=== PATIENT | male | born 2005 | race Caucasian/White ===

== ENCOUNTER 2025-03-01 07:10 | Outpatient (OUT) | payer BC, SELFPAY ==
--- OUTSIDE RECORDS SUMMARY | 2025-03-01 07:17 | XMS_ITS | Clinical Summary ---
Author Organization [facility] Address [address] [place] [address] Phone Care Team Providers Care Associate Sales Representative Name Role Phone Luis Ashley MD Primary Care Provider Ryland chavez Social History Tobacco Use Types Packs/Day Years Used Date Smoking Tobacco: Never Assessed Sex and Gender Information Value Date Recorded Sex Assigned at Not on file Legal Sex Male 3:41 PM EST Gender Identity Not on file Sexual Orientation Not on file Last Filed Vital Signs Vital Sign Reading Time Taken Comments Blood Pressure 118/64 01/28/2022 9:49 AM EDT Pulse 65 01/28/2022 9:49 AM EDT Temperature 37 C (98.6 F) 11/19/2021 1:13 PM EDT Respiratory Rate - - Oxygen Saturation 98% 01/28/2022 9:49 AM EDT Inhaled Oxygen Concentration - - Weight 71.3 kg (157 lb 4 oz) 01/28/2022 9:49 AM EDT Height 172.1 cm (5' 7.75 ) 01/28/2022 9:49 AM ED T Body Mass Index 24.09 01/28/2022 9:49 AM EDT Plan of Treatment Health Maintenance Due Date Last Done Comments HIV Screening 2003 Lipid Panel 2003 Skin Cancer Screening 2003 Hearing Screening (#1) 2007 DTaP/Tdap/Td Vaccines (6 - Tdap) 2014 08/06/2008, 07/21/2004, 01/21/2004, Additional history exists HPV Vaccines (1 - Male 3-dose series) 2018 Meningococcal B Vaccine (1 of 2 - Standard) 2019 Hepatitis C Screening 2021 Yearly Adult Physical 01/29/2022 01/28/2021 COVID-19 Vaccine ( season) 2024 Influenza Vaccine (Season Ended) 2025 07/24/2015, 09/22/2012, 06/06/2009, Additional history exists Zoster Vaccines (1 of 2) 2053 08/06/2008, 11/04 Hepatitis B Vaccines Completed 01/21/2004, 2003, 2003 HIB Vaccines Completed 07/21/2004, 01/04, 2003, Additional history exists Pneumococcal Vaccine: Pediatrics and At-Risk Adult Patients Aged Out 07/21/2004, 2003, 2003 No longer eligible based on patient's age to complete this topic IPV Vaccines Completed 08/06/2008, 01/04, 2003, Additional history exists MMR Vaccines Completed 08/06/2008, 11/18/2004 Varicella Vaccines Completed 08/06/2008, 11/18/2004 Hepatitis A Vaccines Aged Out No long er eligible based on patient's age to complete this topic Meningococcal Vaccine Aged Out No adrian evangelista eligible based on patient's age to complete this topic Rotavirus Vaccines Aged Out No longer eligible based on patient's age to complete this topic Care Teams Associate Sales Representative Relationship Specialty Start Date End Date Luis Ashley MD PCP - General 05/24/17
--- OUTSIDE RECORDS SUMMARY | 2025-03-01 07:17 | XMS_ITS | Clinical Summary ---
Author Organization [facility] Address [address] [place] [address] Care Team Providers Care Radar Mechanic Name Role Phone Unavailable Primary Care Provider Unavailabl e Allergies No known active allergies Medications No known medications Active Problems Problem Noted Date Diagnosed Date Encounter to establish care 09/20/2023 Assessment & Plan (09/20/2023 4:30 PM EST): New Patient, here to establish care. Reviewed medical, surgical and social hx. Reviewed available old records. Reviewed and updated medication list. No active complaints to offer. No prescription medications. No chronic medical conditions. Family History Medical History Relation Name Comments Hyperlipidemia Father Breast cancer Neg Hx Colon cancer Neg Hx Ovarian cancer Neg Hx Relation Name Status Comments Brother x3 Father Alive Mother Alive Social History Tobacco Use Types Packs/Day Years Used Date Smoking Tobacco: Unknown Tobacco Cessation:Counseling Given: Yes Alcohol Use Standard Drinks/Week Comments Defer 0 (1 standard drink = 0.6 oz pur e alcohol) caffeine: coffee, soda/pop PHQ-2 Answer Date Recorded Patient Health Questionnaire-2 Score 0 09/20/2023 Sex and Gender Information Value Date Recorded Sex Assigned at Not on file Legal Sex Male 6:41 PM EDT Gender Identity Not on file Sexual Orientation Not on file Occupation Industry Job Start Date Job End Date [employer] Not on file Not on file Not on file Last Filed Vital Signs Vital Sign Reading Time Taken Comments Blood Pressure 108/84 09/20/2023 4:11 PM EST Pulse 96 09/20/2023 4:11 PM EST Temperature 35.8 C (96.4 F) 09/20/2023 4:11 PM EST Respiratory Rate 18 09/21/2024 8:59 AM EST Oxygen Saturation 98% 09/20/2023 4:11 PM EST Inhaled Oxygen Concentration - - Weight 81.6 kg (180 lb) 09/21/2024 8:59 AM EST Height 172.7 cm (5' 8 ) 09/21/2024 8:59 AM EST Body Mass Index 27.37 09/21/2024 8:59 AM EST Plan of Treatment Not on file Insurance [facility]
--- OUTSIDE RECORDS SUMMARY | 2025-03-01 07:17 | XMS_ITS | Data Portability ---
Author Organization KENN Rojas, [facility] Address [address] [place] [address] Assessment Encounter Date Assessment Date Assessment LastModified by Organization Details LastModified Time 06/11/2023 06/11/2023 Advised look of my findings and that his EKG does not suggest acute UT. I do feel he is progressed to a bacterial bronchitis and he is prescribed doxycycline 100 mg take twice daily for 10 days. We also discussed [id number]-fto-dsnap er medications but he states that he does not want to use any more medications than he has to. He is advised to follow-up with his primary care provider or go to the ER if he is not improving after 3 days of antibiotic therapy. He is also advised to go to the ER immediately if he begins to have unexplained sweating, pain radiating to his shoulder or arm or shortness of breath. Not available 06/11/2023 13:23:45 Plan of Treatment Reminders Order Date Submit Date Provider Last Modified By Organization Details Last Modified Time Details Appointments None recorded. Lab None recorded. Referral None recorded. Procedures repair of laceration procedure (PROC) 2022 023 [email or web address] Not available 15:59:43 Surgeries None recorded. Imaging electrocard iogram 2022 023 [email or web address] [facility], [address] [place], [address], 16:48:37 Medication Orders Zithromax Z-Nader 250 mg tablet 2022 023 [facility], [address] [place], [address], 3 13:17:57 Medrol (Nader) 4 mg tablets in a dose pack 2022 023 [facility], [address] [place], [address], 3 13:17:56 Bromfed DM 2 mg-30 mg-10 mg/5 mL oral syrup 2022 [facility], [address] [place] [address], [address], 3 13:17:56 doxycycline monohydrate 100 mg tablet 2022 [facility], [address] [place] [address], [address], 3 13:11:42 doxycycline hyclate 100 mg capsule 2022 023 [id number], [address] [place], [place], [id number], 13:10:04 Patient TargetsNo targets recorded. Patient Instructions Encounter Date Encounter Id Patient Instructions Last Modified By Organization Details Last Modified Time 10/28/2022 [id number] Discharge Instructions - Wound Care - Wash the wound gently with soap and warm water twice daily. Otherwise keep wound clean, dry and covered with a dressing if there is a possibility that it could get dirty. Ok to leave open to air while at home. - Do not immerse in water, and do not use alcohol or peroxide to clean. Do not use iodine or mercurochrome. - Elevate to decrease pain and improve healing. - Minimize use of affected body part. - Return here or see your doctor for any sign of infection, including redness, swelling, pus or increased pain. - Return to have stitches removed in 7-10 days. - If you received a tetanus shot the site may become sore and you may develop a low-grade fever. Take Tylenol if you have fever or pain. Return for a more severe reaction. [email or web address] Not available 10/28/2022 15:26:40 06/11/2023 [id number] chest pain: care instructions Not available 06/11/2023 13:25:45 Discharge Instructions - Respiratory Infections - Drink lots of fluids, (avoid beverages with high sugar or alcoholic). - Run a cool-mist humidifier in your room at night. If you are using your heater or you feel like you home has low humidity. - For sore throat, gargle warm salt water. - Get extra rest and do not over-exert yourself. (light stretching and leisurely exercise like going for a walk is encouraged) - Do not mix multiple medications with similar ingredients (for instance Nyquil cold and sinus and and Tylenol Sinus have similar active ingredients). Doubling up on acetaminophen and/or decongestants such as pseudoephedrine can be dangerous. - Use decongestants like guaifenesin (for chest) and/or pseudoephedrine (for head) to promote drainage of secretions. Products like Robitussin DM (liquid) and Mucinex DM (tablet) contain guaifenesin and a cough suppressant. Pseudoephedrine can increase blood pressure, if you are taking blood pressure medicine or have been diagnosed with high blood pressure ask your pharmacy for decongestants that are safe for your blood pressure. Check your temperature with a thermometer at least once daily and when ever you are feeling hot or chilled. Fevers should go away within 24 -36 hours of starting antibiotics. If you have a fever over 100F and you feel like you are getting worse go to the ER for a recheck of your symptoms. Consider purchasing a pulse oximeter. With this device, you can monitor your oxygen level and your heart rate. Normal oxygen level is 95-100%. and normal pulse rate is between 60 and 100 beats per minute. Go to the ER immediately if: - pulse oxygen level is 93% or less - your heart rate rises to 120 or higher If you are not improving after 3 days of antibiotic therapy, follow up with your primary provider or go to ER. Go to the ER or call 911 for immediate emergency assistance if: -Symptoms become severe or change -Chest pain/ chest pressure/ chest discomfort -Short of breath/ difficulty breathing. - Unexplained sweating - Pain into left shoulder/arm. - Fever over 100F that has not started to improve after 36 hours of antibiotics - fever over 101F that is not reduced by Tylenol or Motrin - Severe vomiting or diarrhea and not tolerating oral hydration - Decrease of urine output Not available 06/11/2023 13:25:09 07/04/2023 [id number] upper respirator y infection (cold): care instructions [email or web address] Not available 07/04/2023 13:17:48 Rest. Drink lots of fluids, stay well hydrated. Practice good handwashing. Hot steamy showers, humidified air (cool mist humidifier), hot tea, and warm compresses may help with comfort. Patient discussion/educatio n/Plan: Prescribing antibiotic, take as prescribed until complete. Even if feeling better complete the antibiotic. Prescribing you a short course of oral steroid, to help reduce associated inflammation. Steroid advice: Steroids are excellent anti-inflammatory medications that help multiple medical conditions. Common side effects include flushing, irritability, agitation and insomnia, increased appetite, increased energy. Blood sugar can rise and if you are diabetic, the sugar can rise quite high. You will need to monitor your blood sugar more frequently and you may need modifications in your diabetic treatment and/or medication regimen if your sugar rises excessively. Serious but very rare side effects of steroids can occur. Notify your primary care provider if you have any significant symptoms that develop while on a steroid medication. If there are any additional questions with regards to medication you can contact your pharmacist for detailed technical assistant. For chest congestion and cough, recommend BROMFED: Bromfed is a combination of three medications: antihistamine, cough suppressant, and decongestant. While taking this medication do not take any similar over the counter products to include many Cold & Flu medications. Do not take any antihistamines such as Claritin, Reshma, Zyrtec. Do not take any decongestants such as pseudo-ephedrine or the D portion of allergies pills, ie Reshma-D, Claritin-D, Zyrtec-D. Because Bromfed includes an antihistamine this may make you drowsy. Use caution with driving or conducting task that may require mental focus. You can take Tylenol or ibuprofen as needed for pain/fever relief while taking Bromfed. Also, recommend ygcv-jrj-oqrwscr Flonase nasal steroid for sinus congestion. To relieve sore throat recommend the following: Warm salt water gargle, warm tea, warm honey, lozenges, Chloraseptic spray, sucking on hard candy, sucking on ice cubes. Ice cubes will also aid in hydration. Recommend rest, good nutrition, and adequate hydration with appropriate oral intake of fluids. Recommend Pedialyte in children. Alternation of water and Gatorade or other equivalent electrolyte solution in adolescents and adults. Recommend acetaminophen and/or ibuprofen for pain and fever. Recommend ibuprofen for inflammation. See education below. Follow up with your primary care provider for management of care. If symptoms worsen or you have reaction to medications, such as new onset fever, difficulty breathing, or swelling of tongue, face, throat or lips, proceed to the emergency room immediately. Recommended calling 911 for emergency transport as needed. Discussed plan with patient, patient verbally acknowledged/unders tood instructions and agreed to plan. [email or web address] Not available 07/04/2023 13:18:24 Reason for Referral None Reported. Results Created Date Observation Date Name Description Value Unit Range Abnormal Flag Note LastModifiedBy Organization Detail LastModifiedTime 06/11/2006/12/2023 shalini ahmadi am No observ ation record ed. KIRSTY [facility] [address] [place], [address], 06/12/2023 10:50:20 06/11/2006/11/2023 [facility] aruna ahmadi am No observ ation record ed. BARCODE [facility] [address] [place], [address], 06/11/2023 13:39:52 Result Notes None recorded. Problems Name Problem SNOMED Code Status Onset Date Resolution Date Notes Provider Name and Address Organization Details Recorded Time Laceration of right eyebrow 8631190457826 9108 Active 2022 Kevon Bryant PA-C [address] [place], [address] , [facility] 3 15:05:44 Acute bacterial bronchitis 050336711 Active 2022 Wil Hyatt PA-C [address] [place], [address], [facility] 3 13:22:22 Chest pain 92805038 Active 2022 Wil Hyatt PA-C [address] [place], [address], [facility] 3 13:25:35 Acute upper respiratory infection 30369145 Active 2022 Lilo camacho APRN [address] [place], [address], [facility] 13:17:08 Problem Notes None recorded. Procedures Surgical History Date Name Laterality Status Provider Name and Address Organization Details Recorded Time UC Sutures - Lac Repair - face / ears / eyelids / nose / lips / muc memb (0 - 2.5cm)(simpl e) completed Kevon Bryant PA-C [address] [place], [address], [facility] 10/28/2022 15:05:06 Imaging Results None recorded. Procedure Notes None recorded. Medical Equipment None Reported. Allergies No known drug allergies Medications Name Sig Start Date Stop Date Status Note LastModified by Organization Details LastModified Time Bromfed DM 2 mg-30 mg-10 mg/5 mL oral syrup Take 10 mL every 4-6 hours by oral route as needed for 7 days. 2022 active Not Available Not Available Not Avai lable doxycycline hyclate 100 mg capsule Take 1 capsule twice a day by oral route for 7 days. 07/04 completed Not Available Not Available Not Available Medrol (Nader) 4 mg tablets in a dose pack Take 1 dose pk by oral route. 2022 active Not Available Not Available Not Avai lable Zithromax Z-Nader 250 mg tablet TAKE 2 TABLETS (500 MG) BY ORAL ROUTE ONCE DAILY FOR 1 DAY THEN 1 TABLET (250 MG) BY ORAL ROUTE ONCE DAILY FOR 4 DAYS 2022 active Not Available Not Available Not Avai lable doxycycline monohydrate 100 mg tablet Take 1 tablet twice a day by oral route for 10 days. 07/04 completed Not Available Not Available Not Available Vitals Date Recorded Body height Body mass index (BMI) Body mass index (BMI) [Percentile] Per age and sex Body weight Heart rate Respiratory rate Oxygen saturation Oxygen saturation in Arterial blood by Pulse oximetry Body temperature Systolic blood pressure Diastolic blood pressure Provider Name and Address Organization Details Last Updated DateTime 3 172.72 cm 25.8 kg/m2 81 % 44947.7 g 90 /min 16 /min 99 % 99 % 98.9 [degF] 121 mm[Hg] 81 mm[Hg] Vincent Yan [facility] 3 14:40:49 Date Recorded Body height Body mass index (BMI) Body mass index (BMI) [Percentile] Per age and sex Body weight Heart rate Oxygen saturation Oxygen saturation in Arterial blood by Pulse oximetry Respiratory rate Body temperature Systolic blood pressure Diastolic blood pressure Provider Name and Address Organization Details Last Updated DateTime 3 172.72 cm 25.8 kg/m2 78 % 12188.7 g 122 /min 97 % 97 % 20 /min 99.8 [degF] 120 mm[Hg] 74 mm[Hg] Jana Fe [facility] 3 12:59:27 Date Recorded Body height Body mass index (BMI) [Percentile] Per age and sex Body mass index (BMI) Body weight Heart rate Respiratory rate Oxygen saturation Oxygen saturation in Arterial blood by Pulse oximetry Body temperature Pain severity - 0-10 verbal numeric rating [Score] - Reported Systolic blood pressure Diastolic blood pressure Provider Name and Address Organization Details Last Updated DateTime 3 172.72 cm 81 % 26.2 kg/m2 96943.8 9 g 66 /min 16 /min 97 % 97 % 99.1 [degF] 0 131 mm[Hg] 65 mm[Hg] Kitty Hicks [facility] 3 13:09:26 Social History Question Answer Notes LastModified by Organizat ion Details LastModified Time Tobacco Smoking Status Never [facility]oker [facility]/28/2022 14:41:57 Patients Living Environment Safe And Secure? Yes Information not available 10/28/2022 High Risk For Falls? No Information not available 10/28/2022 Readiness To Learn Accepting Information not available 10/28/2022 Barriers To Learning None Information not available 10/28/2022 Learning Preferences No Preferences Information not available 10/28/2022 Have You Had A Fever And/or Symptoms Of A Lower Respiratory Illness (cough, Difficulty Breathing, Etc)? No Information not available 10/28/2022 Have You Had Any Of These Symptoms: Chills ,Headache, Fatigue, Muscle Or Body Aches , Sore Throat, New Loss Of Taste Or Smell, Nausea Or Vomiting, Or Diarrhea? No Information not available 10/28/2022 Sex: Unknown Functional Status None recorded. Mental Status None recorded. Family History Nothing Reported. Medical History No medical history recorded. Immunizations Vaccine Type Date Status Note Provider Name and Address Organization Details Recorded Time Tdap 3 cancelled patient objection Kevon Bryant PA-C [address] [place], [address], [facility] 10/28/2022 15:06:08 Past Encounters Encounter ID Performer Location Encounter Start Date Encounter Closed Date Diagnosis/Indication Diagnosis SNOMED-CT Code Diagnosis ICD10 Code Diagnosis Note [id number] Balaji Diego MD [facility] [address],[place] [address] 10/28/2022 14:31:20 10/28/2022 15:29:39 Laceration of right eyebrow 9605033540 6021759 S01.111A laceration closed with good approximat ion with 3 interrupte d sutures. [id number] Wil Hyatt PA-C [facility] [address] [place] [address] 06/11/2023 12:19:42 06/11/2023 16:48:37 Acute bacterial bronchitis 465713140 J20.9 Chest pain 80287088 R07. 9 [id number] Lilo Fitzgerald , JOSE CARLOS [facility] [address] [place] [address] 07/04/2023 13:02:17 07/04/2023 13:26:11 Acute upper respiratory infection 56022404 J06.9 Health Concerns Section Related Observation LastModified by Organization Detai ls LastModified Time None Recorded Concern Status LastModified by Organization Details LastModified Time None Recorded Advance Directives Directive None Recorded Payers Insurance Date Sequence Insurance Name Policy Number Policy Mckenna Covered Member ID Mckenna Member ID Guarantor Name 07/05/2023 1 [place] [id number] 1 [place] [id number] Roger Adam Hermosillo Notes Date Note Type Note Provider Name and Address Organization Details Recorded Time 10/28/2022 text/html 17 year old male with a chief complaint of a laceration to the right eye brow. PT [place] the [place] when he was accidentally elbowed in the right eyebrow area resulting in a laceration.PT reports no LOC, no headache, no disorientation or confusion. Kevno Bryant PA-C [address] [place], [address], [facility] 10/28/2022 15:27:00 06/11/2023 text/html Roger is a 17-year-old male who presents for severe cough and slight chest pain. He states the cough and initially fevers have been present for about a week now. The slight chest discomfort began last night and has worsened slightly with his coughing fits. He denies high cholesterol, previous problems with his heart, diaphoresis, pain into the shoulder or arm, or heart attacks in any other members of his family at youthful ages. He is not having any nasal symptoms, ear complaints, difficulty breathing. He has tried Mucinex and multiple xytm-fvs-tapyurb such as essential oils. Wil Hyatt PA-C [address] [place], [address], [facility] 06/11/2023 13:25:52 07/04/2023 text/html 17 yo male here for cough that is prod with st and nasal drainage x [address] started 4 days ago. He denies n/v/d, soa, cp, fever or ear pain Lilo Fitzgerald, SENIOR PROJECT ARCHITECT [address] [facility], [place], [address], [place] [facility] [place] [facility] 07/04/2023 13:20:07
--- OUTSIDE RECORDS SUMMARY | 2025-03-01 07:17 | XMS_ITS | Encounter Summary ---
Author Organization [facility] Address [address] [place] [address] Phone Care Team Providers Care Residential Sales Rep Name Role Phone Luis Ashley MD Primary Care Provider Luis Faria MD Unavailable Unavailable Encounter Details Date Type Department Care Team (Late st Contact Info) Description 05/09/2023 Patient Risk Score ACO Care Management [address] [facility] [address] [place] [address] Social History Tobacco Use Types Packs/Day Years Used Date Smoking Tobacco: Never Assessed Sex and Gender Information Value Date Recorded Sex Assigned at Not on file Legal Sex Male 3:41 PM EST Gender Identity Not on file Sexual Orientation Not on file documented as of this encounter Plan of Treatment Not on file documented as of this encounter Visit Diagnoses Not on filedocumented in this encounter Care Teams Residential Sales Rep Relationship Specialty Start Date End Date Luis Ashley MD PCP - General 05/24/17 Luis Ashley MD Office Address Unavailable as of 02/04/2022 PCP - [place] [facility] PCP 09/06/21 09/05/23 documented as of this encounter
--- OUTSIDE RECORDS SUMMARY | 2025-03-01 07:17 | XMS_ITS | Encounter Summary ---
Author Organization [facility] Address [address] [place] [address] Phone Care Team Providers Care Mushroom Packer Name Role Phone Luis Ashley MD Primary Care Provider Luis Faria MD Unavailable Unavailable Encounter Details Date Type Department Care Team (Late st Contact Info) Description 03/08/2023 Patient Risk Score ACO Care Management [address] [facility] [address] [place] [address] Social History Tobacco Use Types [...] on filedocumented in this encounter Care Teams Mushroom Packer Relationship Specialty Start Date End Date Luis Ashley MD PCP - General 05/24/17 Luis Ashley MD Office Address Unavailable as of 02/04/2022 PCP - [place] [facility] PCP 09/06/21 09/05/23 documented as of this encounter
--- OUTSIDE RECORDS SUMMARY | 2025-03-01 07:17 | XMS_ITS | Encounter Summary ---
Author Organization [facility] Address [address] [place] [address] Phone Care Team Providers Care Ice Cream Freezer Helper Name Role Phone Luis Ashley MD Primary Care Provider Ryland chavez Encounter Details Date Type Department Care Team (Late st Contact Info) Description 09/08/2023 Patient Risk Score ACO Care Management [address] [place] [address] Social History Tobacco Use Types [...] on filedocumented in this encounter Care Teams Ice Cream Freezer Helper Relationship Specialty Start Date End Date Luis Ashley MD PCP - General 05/24/17 documented as of this encounter
--- OUTSIDE RECORDS SUMMARY | 2025-03-01 07:17 | XMS_ITS | Encounter Summary ---
Author Organization [facility] Address [address] [place] [address] Phone Care Team Providers Care Machinist Brake Name Role Phone Luis Ashley MD Primary Care Provider Luis Faria MD Unavailable Unavailable Encounter Details Date Type Department Care Team (Late st Contact Info) Description 04/08/2023 Patient Risk Score ACO Care Management [address] [facility] [address] [place] [address] Social History Tobacco Use Types [...] on filedocumented in this encounter Care Teams Machinist Brake Relationship Specialty Start Date End Date Luis Ashley MD PCP - General 05/24/17 Luis Ashley MD Office Address Unavailable as of 02/04/2022 PCP - [place] [facility] PCP 09/06/21 09/05/23 documented as of this encounter
--- OUTSIDE RECORDS SUMMARY | 2025-03-01 07:17 | XMS_ITS | Encounter Summary ---
Author Organization [facility] Address [address] [place] [address] Phone Care Team Providers Care Cafeteria Food Server Name Role Phone Luis Ashley MD Primary Care Provider Luis Faria MD Unavailable Unavailable Encounter Details Date Type Department Care Team (Late st Contact Info) Description 07/09/2023 Patient Risk Score ACO Care Management [address] [facility] [address] [place] [address] Social History Tobacco Use Types [...] on filedocumented in this encounter Care Teams Cafeteria Food Server Relationship Specialty Start Date End Date Luis Ashley MD PCP - General 05/24/17 Luis Ashley MD Office Address Unavailable as of 02/04/2022 PCP - [place] [facility] PCP 09/06/21 09/05/23 documented as of this encounter
--- NOTE | 2025-03-01 07:21 | US_ITS ---
The [address] [address] Patient Name: DEANDRE LEWIS MRN: [id number] date: 2005 Sex: M Assigned Patient Location: US Current Patient Location: US Accession/Order Number: [id number] Exam Date: 03/01/2025 08:34 Report Date: 03/01/2025 08:38 At the request of: JUDIT EDMOND NP Procedure: US scrotum SCROTAL ULTRASOUND WITH DUPLEX IMAGING CLINICAL DATA: Palpable left testicular lump. COMPARISON: None The right testis measures 4.4 x 2.3 x 3.0 cm. The left testis measures 4.3 x 2.3 x 2.6 cm. There is normal echogenicity. No intratesticular masses are identified. There is documentation of duplex and color Doppler testicular blood flow. The epididymal heads are similar in size and show no abnormalities. A trace amount of fluid is seen around both testes, greater on the left. No discrete ultrasound findings are identified by the cloth examiner hand at the site of palpable concern. US/US scrotum IMPRESSION: NO EVIDENCE OF INTRATESTICULAR MASS OR TORSION. Impression dictated by: Michaela Morales M.D. 03/01/2025 8:38 AM Dictation Location: [place] [address] Electronically authenticated by: [id number] Y Date: 03/01/2025 08:38
== END 2025-03-01 07:11 | disposition home or self-care (01) ==
LOC: US 07:15
PROVIDERS: Family Provider Pediatrics; PCP Family Medicine; Visit Provider Nurse Practitioner Family
DX: N50.3 Cyst of epididymis (principal)
CPT/HCPCS: 76870